=== PATIENT | female | born 1960 | race Caucasian/White ===

== ENCOUNTER 2017-01-14 05:14 | Inpatient (IN) | payer BC, OTHER ==
[~2017-01-14] VITALS: Ht 160 cm; Wt 80.7 kg
[~2017-01-14 05:14] MED LIST: CYCLOBENZAPRINE5 MG PO; GERD MED PO; HYDROCODON-ACE1 EAC7 PO; LO-DOSE ASPIRIN81 M2 PO; MELOXICAM15 MG PO; METFORMIN HCL1000 MG PO; METFORMIN HCL500 MG PO; PROZAC20 MG PO; TRULICITY0.75 MG/0. SC; VITAMIN D-32000 UNI2 PO
[2017-01-14 05:55] VITALS: BP 147/73
[2017-01-14 06:34] LABS: POINT-OF-CARE METER ID UU14174212
[2017-01-14 12:02] LABS: POINT-OF-CARE METER ID UU13113675
[2017-01-14 15:59] VITALS: BP 130/66
[2017-01-14 20:11] VITALS: BP 109/68
[2017-01-15] VITALS: BP 105/50
[2017-01-15 00:14] VITALS: BP 105/50
[2017-01-15 03:48] VITALS: BP 96/55
[2017-01-15 08:00] VITALS: BP 99/56
[2017-01-15 11:27] LABS: POINT-OF-CARE METER ID UU14149397
[2017-01-15 12:18] VITALS: BP 115/55; BP 155/55
[2017-01-15 16:03] VITALS: BP 93/51
[2017-01-15 16:56] LABS: POINT-OF-CARE METER ID UU14149397
== END 2017-01-15 22:14 | disposition home or self-care (01) | DRG 460 ==
LOC: 2SOUTH 05:14 → 3EAST 15:24 → 2SOUTH 15:30 → 3EAST 01-15 22:14
PROVIDERS: Neurological Surgery
PROC: 0SG30AJ Fusion of Lumbosacral Joint with Interbody Fusion Device, Posterior Approach, Anterior Column, Open Approach (ICD-10-PCS; principal; 2017-01-14)
DX: M43.10 Spondylolisthesis, site unspecified (principal); M54.16 Radiculopathy, lumbar region; E11.9 Type 2 diabetes mellitus without complications; F17.210 Nicotine dependence, cigarettes, uncomplicated; M21.379 Foot drop, unspecified foot; M79.7 Fibromyalgia; F32.9 Major depressive disorder, single episode, unspecified; E78.5 Hyperlipidemia, unspecified; K76.9 Liver disease, unspecified; I25.10 Atherosclerotic heart disease of native coronary artery without angina pectoris; Z90.49 Acquired absence of other specified parts of digestive tract; Z86.73 Personal history of transient ischemic attack (TIA), and cerebral infarction without residual deficits
CPT/HCPCS: 72100; 76000; 82948; 86850; 86900; 86901; C1713; J0690; J1170; J1815; J2250; J2300; J2405; J2930; J3010; J3370; J3480; S0020